=== PATIENT | female | born 1950 | race Caucasian/White ===

== ENCOUNTER 2018-11-25 17:01 | Emergency (ER) | payer MEDICARE ==
[~2018-11-25] VITALS: Ht 152.4 cm; Wt 77.0 kg
[~2018-11-25 17:01] MED LIST: BACL10TA PO; EPIN0.3P3 IM; HYDR-4353 PO; IBUP-1986 PO; NEBI2.5T3 PO
[2018-11-25] MEDS ORDERED: normal saline 1000ML IV soln IV ONE (17:40)
[2018-11-25] MEDS ORDERED: metoprolol tartrate 1mg/ml inj IV ONE (17:40)
[2018-11-25] MEDS ORDERED: acetaminophen 325mg tablet PO STA (18:12)
[2018-11-25 18:13] LABS: BASOPHILS % (AUTO) 0.3 % (0-1); EOSINOPHILS % (AUTO) 0.1 % (0-6); LYMPHOCYTES # (AUTO) 0.8 X10'3 (1.1-4.8); LYMPHOCYTES % (AUTO) 7.2 % (21-51); MEAN CORPUSCULAR HEMOGLOBIN 31.4 PG (27.0-31.0); MEAN CORPUSCULAR HGB CONC 34.8 g/dL (33.0-36.5); MEAN CORPUSCULAR VOLUME 90.3 FL (78-98); MEAN PLATELET VOLUME 8.6 FL (7.4-10.4); MONOCYTES # (AUTO) 0.7 X10'3 (0-0.9); NEUTROPHILS # (AUTO) 9.6 X10'3 (1.8-7.7); NEUTROPHILS % (AUTO) 86.4 % (42-75); PLATELET COUNT 246 X10'3 (140-440); RED BLOOD COUNT 4.76 X10'6 (4.20-5.60); RED CELL DISTRIBUTION WIDTH 12.3 % (11.5-14.5); WHITE BLOOD COUNT 11.2 X10'3 (4.5-11.0)
--- NOTE | 2018-11-25 18:15 | NUR ---
informed Paradise VALLE regarding patients current vital signs and increased pain of 10/10 on 0-10 pain scale. Stated that he would place order for tylenol.
[2018-11-25 18:23] LABS: COLOR,URINE YELLOW (Yellow); GLUCOSE, URINE NEGATIVE (Neg); KETONES,URINE 40 mg/dl (Neg); LEUKOCYTE ESTERASE ,URINE TRACE (Neg); NITRITES, URINE NEGATIVE (Neg); OCCULT BLOOD,URINE TRACE-INTACT (Neg); PROTEIN,URINE NEGATIVE (Neg); UROBILINOGEN,URINE 0.2 E.U/dL (0.2-1.0)
[2018-11-25 18:32] LABS: ANION GAP 11 (8-16); BILIRUBIN,TOTAL 0.8 MG/DL (0.1-1.0); BLOOD UREA NITROGEN 19 MG/DL (7-18); BUN/CREATININE RATIO 16.7 (6.6-38.0); CHLORIDE 102 MMOL/L (99-107); CREATININE 1.14 MG/DL (0.40-0.90); GLUCOSE 110 MG/DL (70-104); POTASSIUM 3.4 MMOL/L (3.5-5.1); SODIUM 136 MMOL/L (135-145); TOTAL CARBON DIOXIDE 23.2 MMOL/L (24-32); eGFR 47 ML/MIN
[2018-11-25 18:33] LABS: ALANINE AMINOTRANSFERASE 46 U/L (12-78); ALKALINE PHOSPHATASE 128 IU/L (46-116); ASPARTATE AMINO TRANSFERASE 32 U/L (10-37); TOTAL PROTEIN 8.2 G/DL (6.4-8.2)
[2018-11-25 18:37] LABS: CLARITY,URINE SLIGHTLY CLOUDY (Clear); UA COLLECTION TYPE NON-SPECIFIED
[2018-11-25 18:39] LABS: BACTERIA,URINE NONE SEEN /HPF (Neg); RBC,URINE NONE SEEN /HPF (0-2); SQUAMOUS EPITHELIAL CELL,UR MODERATE /LPF (FEW)
[2018-11-25] MEDS ORDERED: CefTRIAXone 2gm/D5W 50ml 50 ML IV ONE (18:50)
[2018-11-25] MEDS ORDERED: CEPH250T PO (19:06)
[2018-11-25 19:34] VITALS: BP 149/65
== END 2018-11-25 19:37 | disposition home or self-care (01) ==
LOC: ER 17:03
DX: N39.0 Urinary tract infection, site not specified (principal); R00.0 Tachycardia, unspecified; R42 Dizziness and giddiness; R52 Pain, unspecified; Z98.890 Other specified postprocedural states; Z88.8 Allergy status to other drugs, medicaments and biological substances; Z79.2 Long term (current) use of antibiotics; Z79.899 Other long term (current) drug therapy
CPT/HCPCS: 36415; 71045; 80053; 81001; 82948; 83605; 84145; 85025; 87040; 87088; 96361; 96365; 96375; 99284; J0696; J7030; J7040; 93005; J3490

== ENCOUNTER 2019-10-04 13:18 | Outpatient (CLI) | payer MEDICARE ==
[~2019-10-04 13:18] MED LIST changes: +BARIUM SULFATE 340 ML SUSP.RECON***PROCEDURE AREA ONLY**DONT ENTER PO ONE
== END 2019-10-04 23:59 | disposition home or self-care (01) ==
LOC: RAD 13:18
PROVIDERS: ATTEND Nurse Practitioner Family
DX: K21.9 Gastro-esophageal reflux disease without esophagitis (principal); R49.0 Dysphonia; R13.14 Dysphagia, pharyngoesophageal phase
CPT/HCPCS: 74230

== ENCOUNTER 2019-10-30 10:38 | Observation (INO) | payer MEDICARE ==
[~2019-10-30] VITALS: Ht 152.4 cm; Wt 78.2 kg
[~2019-10-30 10:38] MED LIST changes: -BARIUM SULFATE 340 ML SUSP.RECON***PROCEDURE AREA ONLY**DONT ENTER PO ONE
[2019-10-30 11:06] LABS: BASOPHILS % (AUTO) 0.8 % (0-1); EOSINOPHILS # (AUTO) 0.2 X10'3 (0-0.9); EOSINOPHILS % (AUTO) 3.8 % (0-6); HEMATOCRIT 41.8 % (35.0-45.0); HEMOGLOBIN 14.3 g/dl (12.0-16.0); LYMPHOCYTES # (AUTO) 2.1 X10'3 (1.1-4.8); LYMPHOCYTES % (AUTO) 33.2 % (21-51); MEAN CORPUSCULAR HEMOGLOBIN 30.9 PG (27.0-31.0); MEAN CORPUSCULAR HGB CONC 34.1 g/dL (33.0-36.5); MEAN CORPUSCULAR VOLUME 90.6 FL (78-98); MEAN PLATELET VOLUME 8.9 FL (7.4-10.4); MONOCYTES # (AUTO) 0.5 X10'3 (0-0.9); MONOCYTES % (AUTO) 7.7 % (2-12); NEUTROPHILS # (AUTO) 3.4 X10'3 (1.8-7.7); NEUTROPHILS % (AUTO) 54.5 % (42-75); PLATELET COUNT 216 X10'3 (140-440); RED BLOOD COUNT 4.61 X10'6 (4.20-5.60); RED CELL DISTRIBUTION WIDTH 12.6 % (11.5-14.5); WHITE BLOOD COUNT 6.2 X10'3 (4.5-11.0)
--- NOTE | 2019-10-30 11:15 | NUR ---
Teleneuro exam completed with Dr Colon. Rec CTA head and neck and admission for stroke work up. Pt reports "Tia" in the past. Pt has had recent endoscopy or swallow eval here on outpt for swallowing difficulties.
[2019-10-30 11:20] LABS: PARTIAL THROMBOPLASTIN TIME 27 SECONDS (22-32)
[2019-10-30 11:22] LABS: ALANINE AMINOTRANSFERASE 40 U/L (12-78); ALBUMIN 3.8 G/DL (3.4-5.0); ALBUMIN/GLOBULIN RATIO 1.1 (1.1-1.5); ALKALINE PHOSPHATASE 92 IU/L (46-116); ANION GAP 6 (8-16); ASPARTATE AMINO TRANSFERASE 28 U/L (10-37); BILIRUBIN,TOTAL 0.7 MG/DL (0.1-1.0); BLOOD UREA NITROGEN 17 MG/DL (7-18); BUN/CREATININE RATIO 16.2 (6.6-38.0); CALCIUM 9.5 MG/DL (8.5-10.1); CHLORIDE 106 MMOL/L (99-107); CREATININE 1.05 MG/DL (0.40-0.90); GLUCOSE 97 MG/DL (70-104); POTASSIUM 3.7 MMOL/L (3.5-5.1); SODIUM 141 MMOL/L (135-145); TOTAL CARBON DIOXIDE 28.7 MMOL/L (24-32); TOTAL PROTEIN 7.4 G/DL (6.4-8.2); eGFR 52 ML/MIN
[2019-10-30 11:25] LABS: TROPONIN I < 0.04 NG/ML (0.0-0.05)
[2019-10-30] MEDS ORDERED: iohexol 350MG/ML 100ml bottle IV ONE (11:31)
--- NOTE | 2019-10-30 12:04 | NUR ---
ASSUMED CARE TAKEN OVER FROM ROSENDO RN {STROKE NURSE} AFTER PT IS BACK FROM CTA.
--- NOTE | 2019-10-30 12:06 | NUR ---
PT BACK FROM CT SCAN ,PT VITALS CHECKED ,PT SAID SHE NEED TO USE RESTROOM TO URINATE,BEDSIDE COMMODE GIVEN ,STROKE NURSE ROSENDO AT BEDSIDE WITH THE PT.
[2019-10-30] MEDS ORDERED: IBUP-1985 PO (12:22)
[2019-10-30] MEDS ORDERED: CYCL-1 PO (12:22)
[2019-10-30] MEDS ORDERED: OMEP-50 PO (12:22)
[2019-10-30] MEDS ORDERED: NEBI5TAB10 PO (12:22)
[2019-10-30] MEDS ORDERED: ALBU18HF2 IH (12:31)
[2019-10-30] MEDS ORDERED: BUDE10.2 IH (12:31)
[2019-10-30 12:36] LABS: CLARITY,URINE CLEAR (Clear); COLOR,URINE STRAW (Yellow); GLUCOSE, URINE NEGATIVE (Neg); KETONES,URINE NEGATIVE (Neg); LEUKOCYTE ESTERASE ,URINE NEGATIVE (Neg); NITRITES, URINE NEGATIVE (Neg); OCCULT BLOOD,URINE NEGATIVE (Neg); PROTEIN,URINE NEGATIVE (Neg); UROBILINOGEN,URINE 0.2 E.U/dL (0.2-1.0)
[2019-10-30 12:37] LABS: UA COLLECTION TYPE CLN CATCH MIDSTREAM
[2019-10-30] MEDS ORDERED: acetaminophen 325mg tablet PO PRN (13:15)
[2019-10-30] MEDS ORDERED: potassium Cl 20 mEq SR tablet PO PRN ×2 (13:15)
[2019-10-30] MEDS ORDERED: potassium CL 10mEq/100ml bag 100 ML IV PRN ×2 (13:15)
[2019-10-30] MEDS ORDERED: magnesium Cl slow-release 64mg tablet PO PRN (13:15)
[2019-10-30] MEDS ORDERED: ondansetron/PF 4mg/2ml inj IV PRN (13:15)
[2019-10-30] MEDS ORDERED: magnesium 4gm in 100ml NS 100 ML IV PRN (13:15)
[2019-10-30] MEDS ORDERED: morphine 2 MG/ML inj. syringe IV PRN (13:15)
[2019-10-30] MEDS ORDERED: magnesium 2GM in 50ml NS 50 ML IV PRN (13:15)
[2019-10-30] MEDS ORDERED: HYDROcodone/acetaminophen 5mg/325mg tablet PO PRN (13:15)
--- NOTE | 2019-10-30 14:36 | NUR ---
pt using bedside at this time .will cont to monitor.
--- NOTE | 2019-10-30 15:32 | NUR ---
MRI SCREENING FORM FILLED WITH THE PT.
[2019-10-30] MEDS ORDERED: cyclobenzaprine 10mg tablet PO PRN (16:00)
[2019-10-30] MEDS ORDERED: albuterol 2.5 MG/3 ML nebule NEB PRN (16:00)
--- NOTE | 2019-10-30 17:17 | NUR ---
Patient in room [facility]TH[facility] 4010A. I have received report from ALBA FUENTES IN ED and had the opportunity to ask questions and assume patient care.
[2019-10-30 17:18] VITALS: BP 170/75
[2019-10-30] MEDS ORDERED: ibuprofen 200mg tablet PO PRN (17:30)
[2019-10-30 18:00] VITALS: BP 164/59
--- NOTE | 2019-10-30 18:33 | NUR ---
Problems reprioritized. Patient report given, questions answered & plan of care reviewed with ALBA PETERSON.
[2019-10-30] MEDS ORDERED: budesonide 0.5mg/2ml UD nebule IH SCH (20:00)
[2019-10-30] MEDS: metoprolol tartrate 12.5mg (1/2 tablet) PO SCH (20:00)
[2019-10-30] MEDS: K and/or MAG REPLACEMENT MC SCH (20:00)
[2019-10-30] MEDS: docusate sod 100mg capsule PO SCH (20:23)
[2019-10-30 22:00] VITALS: BP 132/46
[2019-10-31 02:00] VITALS: BP 124/48
[2019-10-31 06:00] VITALS: BP 154/58
--- NOTE | 2019-10-31 06:33 | NUR ---
Problems reprioritized. Patient report given, questions answered & plan of care reviewed with ALBA CARLTON.
--- NOTE | 2019-10-31 06:40 | NUR ---
Patient in room [facility]TH[facility] 4010A. I have received report from ALBA PETERSON and had the opportunity to ask questions and assume patient care.
[2019-10-31 06:58] LABS: BASOPHILS % (AUTO) 0.5 % (0-1); EOSINOPHILS # (AUTO) 0.2 X10'3 (0-0.9); EOSINOPHILS % (AUTO) 3.9 % (0-6); HEMATOCRIT 39.8 % (35.0-45.0); HEMOGLOBIN 13.8 g/dl (12.0-16.0); LYMPHOCYTES # (AUTO) 1.9 X10'3 (1.1-4.8); LYMPHOCYTES % (AUTO) 29.4 % (21-51); MEAN CORPUSCULAR HEMOGLOBIN 31.5 PG (27.0-31.0); MEAN CORPUSCULAR HGB CONC 34.7 g/dL (33.0-36.5); MEAN CORPUSCULAR VOLUME 90.8 FL (78-98); MEAN PLATELET VOLUME 9.2 FL (7.4-10.4); MONOCYTES # (AUTO) 0.6 X10'3 (0-0.9); MONOCYTES % (AUTO) 9.2 % (2-12); NEUTROPHILS # (AUTO) 3.7 X10'3 (1.8-7.7); PLATELET COUNT 198 X10'3 (140-440); RED BLOOD COUNT 4.38 X10'6 (4.20-5.60); RED CELL DISTRIBUTION WIDTH 12.3 % (11.5-14.5); WHITE BLOOD COUNT 6.4 X10'3 (4.5-11.0)
[2019-10-31 07:09] LABS: ALBUMIN 3.6 G/DL (3.4-5.0); ANION GAP 8 (8-16); BLOOD UREA NITROGEN 24 MG/DL (7-18); BUN/CREATININE RATIO 22.4 (6.6-38.0); CALCIUM 9.3 MG/DL (8.5-10.1); CHLORIDE 106 MMOL/L (99-107); CHOL/HDL RATIO 3.8 (0.00-4.99); CHOLESTEROL 162 MG/DL (0-200); CREATININE 1.07 MG/DL (0.40-0.90); GLUCOSE 100 MG/DL (70-104); HDL CHOLESTEROL 43 MG/DL (35-60); LDL CHOLESTEROL 104 MG/DL (50-100); MAGNESIUM 2.1 MG/DL (1.5-2.4); SODIUM 139 MMOL/L (135-145); TOTAL CARBON DIOXIDE 24.7 MMOL/L (24-32); TRIGLYCERIDES 113 MG/DL (20-135); eGFR 51 ML/MIN
[2019-10-31] MEDS: K and/or MAG REPLACEMENT MC SCH (07:22)
[2019-10-31] MEDS ORDERED: pantoprazole 40mg Tablet.DR PO SCH (07:30)
[2019-10-31] MEDS: docusate sod 100mg capsule PO SCH (07:59)
[2019-10-31] MEDS: metoprolol tartrate 12.5mg (1/2 tablet) PO SCH (08:00)
[2019-10-31 10:00] VITALS: BP 115/47
[2019-10-31] MEDS ORDERED: NEBI5TAB10 PO (12:10)
[2019-10-31] MEDS ORDERED: LISI2.5T2 PO (12:13)
--- NOTE | 2019-10-31 13:04 | NUR ---
DC INSTRUCTIONS GIVEN TO PT, QUESTIONS ANSWERED. IV REMOVED, CANULA INTACT, NO COMPLICATIONS. TELE MONITOR REMOVED. PT DRESSED SELF, GATHERED BELONGINGS. WHEELED DOWN TO IN PRIVATE VEHICLE IN STABLE CONDITION.
== END 2019-10-31 12:50 | disposition home or self-care (01) ==
LOC: ER 10:40 → ED HOLD 13:11 → ORTHO 4S 16:45
PROVIDERS: ADMIT Internal Medicine; ATTEND Internal Medicine
DX: R51 Headache (principal); I10 Essential (primary) hypertension; R53.1 Weakness; M79.7 Fibromyalgia; K21.9 Gastro-esophageal reflux disease without esophagitis; Z86.73 Personal history of transient ischemic attack (TIA), and cerebral infarction without residual deficits; Z98.42 Cataract extraction status, left eye; Z79.899 Other long term (current) drug therapy; Z88.6 Allergy status to analgesic agent; Z91.030 Bee allergy status
CPT/HCPCS: 36415; 70450; 70496; 70498; 70544; 70551; 71045; 80048; 80053; 80061; 81003; 83735; 84484; 85025; 85610; 85651; 85730; 87081; 92508; 92616; 93005; 93306; 94640; 94760; 97116; 97161; 97530; 99285; G0378; Q9967; J7626

== ENCOUNTER 2023-11-09 11:05 | Emergency (ER) | payer MEDICARE ==
[~2023-11-09] VITALS: Ht 152.4 cm; Wt 82.0 kg
[~2023-11-09 11:05] MED LIST changes: +ALBU18HF2 IH; +AMLO5TAB4 PO; -BACL10TA PO; +BUDE10.2 IH; +CYCL-1 PO; -EPIN0.3P3 IM; +ESCI-8 PO; -HYDR-4353 PO; -IBUP-1986 PO; -NEBI2.5T3 PO; +OMEP20CA16 PO; +VALS40TA2 PO
[2023-11-09 11:57] LABS: BILIRUBIN,URINE NEGATIVE (Neg); CLARITY,URINE SLIGHTLY CLOUDY (Clear); COLOR,URINE YELLOW (Yellow); GLUCOSE, URINE NEGATIVE (Neg); KETONES,URINE 15 mg/dl (Neg); LEUKOCYTE ESTERASE ,URINE NEGATIVE (Neg); NITRITES, URINE NEGATIVE (Neg); OCCULT BLOOD,URINE NEGATIVE (Neg); PROTEIN,URINE TRACE mg/dl (Neg); UROBILINOGEN,URINE 0.2 E.U/dL (0.2-1.0)
[2023-11-09 12:08] LABS: UA COLLECTION TYPE CLN CATCH MIDSTREAM
[2023-11-09 12:16] LABS: MUCUS STRANDS MODERATE /LPF (Neg); SQUAMOUS EPITHELIAL CELL,UR MANY /LPF (FEW)
[2023-11-09 12:18] LABS: BACTERIA,URINE 1+ /HPF (Neg); COARSE GRANULAR CAST 0-3 /LPF (NEGATIVE); RBC,URINE 0-2 /HPF (0-2)
[2023-11-09 12:26] LABS: BASOPHILS % (AUTO) 0.2 % (0-1); EOSINOPHILS % (AUTO) 0.2 % (0-6); HEMATOCRIT 42.7 % (35.0-45.0); HEMOGLOBIN 14.5 g/dl (12.0-16.0); LYMPHOCYTES # (AUTO) 0.8 X10'3 (1.1-4.8); LYMPHOCYTES % (AUTO) 8.5 % (21-51); MEAN CORPUSCULAR HEMOGLOBIN 30.9 PG (27.0-31.0); MEAN CORPUSCULAR VOLUME 90.9 FL (78-98); MEAN PLATELET VOLUME 8.4 FL (7.4-10.4); MONOCYTES # (AUTO) 0.8 X10'3 (0-0.9); MONOCYTES % (AUTO) 8.1 % (2-12); NEUTROPHILS # (AUTO) 8.2 X10'3 (1.8-7.7); PLATELET COUNT 247 X10'3 (140-440); RED CELL DISTRIBUTION WIDTH 13.2 % (11.5-14.5); WHITE BLOOD COUNT 9.9 X10'3 (4.5-11.0)
[2023-11-09 12:54] LABS: ALANINE AMINOTRANSFERASE 44 U/L (12-78); ALBUMIN 3.7 G/DL (3.4-5.0); ALBUMIN/GLOBULIN RATIO 0.9 (1.1-1.5); ALKALINE PHOSPHATASE 134 IU/L (46-116); ANION GAP 12 (8-16); ASPARTATE AMINO TRANSFERASE 38 U/L (10-37); BLOOD UREA NITROGEN 13 MG/DL (7-18); BUN/CREATININE RATIO 12.5 (10.0-20.0); CALCIUM 9.6 MG/DL (8.5-10.1); CHLORIDE 101 MMOL/L (99-107); CREATININE 1.04 MG/DL (0.40-0.90); GLUCOSE 129 MG/DL (70-104); LIPASE 37 U/L (16-77); POTASSIUM 4.1 MMOL/L (3.5-5.1); SODIUM 135 MMOL/L (135-145); TOTAL CARBON DIOXIDE 21.6 MMOL/L (24-32); TOTAL PROTEIN 7.7 G/DL (6.4-8.2); eCRCL 35 ML/MIN; eGFR 52 ML/MIN
[2023-11-09 13:03] LABS: BILIRUBIN,TOTAL 0.7 MG/DL (0.1-1.0)
[2023-11-09 13:19] VITALS: TEMP 99.7
[2023-11-09] MEDS: acetaminophen 1,000mg/100ml IV 100 ML IV ONE (13:42)
[2023-11-09] MEDS: normal saline 1000ml 1,000 ML IV ONE (13:43)
[2023-11-09] MEDS ORDERED: NIRM1TAB9 PO (14:15)
[2023-11-09 14:25] VITALS: BP 144/99; PULSE 78; RESP 16; O2SAT 99
== END 2023-11-09 14:33 | disposition home or self-care (01) ==
LOC: ER 11:05
DX: U07.1 COVID-19 (principal); M79.7 Fibromyalgia; Z88.8 Allergy status to other drugs, medicaments and biological substances; Z79.899 Other long term (current) drug therapy; Z79.51 Long term (current) use of inhaled steroids; Z86.73 Personal history of transient ischemic attack (TIA), and cerebral infarction without residual deficits; Z98.890 Other specified postprocedural states
CPT/HCPCS: 36415; 80053; 81001; 83690; 85025; 87811; 96365; 99284; J0131; J7030

== ENCOUNTER 2024-07-01 22:18 | Emergency (ER) | payer MEDICARE ==
[~2024-07-01 22:18] MED LIST changes: +NIRM1TAB9 PO
--- NOTE | 2024-07-01 23:56 | RADIOLOGY REPORT ---
EXAM: CT CT CERVICAL SPINE HISTORY: fall, w/. head strike COMPARISON: None CTDIvol mGy, DLP mGy*cm. TECHNIQUE: Multiple axial CT images of the spine were obtained using bone algorithm. Axial and coron al reformatting was done. Bone and soft tissue windows were reviewed. FINDINGS: No prevertebral soft tissue abnormality noted. There is normal alignment of the cervical spine. The c ervical vertebral bodies appear unremarkable with no evidence of fracture or dislocation. Paraspinal soft tissues appear unremarkable. Mild cervical spondylosis without spinal canal stenosis. Incidental ly noted are elongated styloid processes bilaterally. IMPRESSION: No evidence of cervical spine fracture or dislocation.
--- NOTE | 2024-07-01 23:57 | RADIOLOGY REPORT ---
CLINICAL HISTORY: fall, w/. head strike TECHNIQUE: Helical imaging carried out from skull base to vertex without intravenous contrast. This e xam was performed according to our departmental dose optimization program. Up-to-date CT equipment an d radiation dose reduction techniques are utilized as appropriate. CTDIVol: 0.14+ 60.85 mGy DLP: 1147.84 mGy-cm WID: COMPARISON: CT HEAD on DOS: 08/02/21 FINDINGS: Generalized cerebral volume loss with concordant prominence of the subarachnoid spaces and ventricles . There is no midline shift or mass effect. The alejandra white matter interfaces are maintained. The basal cisterns are patent. There is no evidence of acute intracranial hemorrhage or extra-axial fluid chris ection. The mastoid air cells and visualized paranasal sinuses are well-aerated aside from mild paran danny sinus mucosal thickening. IMPRESSION: No acute intracranial abnormality.
[2024-07-02] MEDS ORDERED: ibuprofen tablet 400 MG TABLET PO ONE (00:15)
--- NOTE | 2024-07-02 00:28 | Physician Documentation ---
History of Present Illness ~ Chief Complaint: Mechanical Fall Stated Complaint: FALL Time Seen by MD: 23:10 Primary Medical Doctor: EDNA Source: patient, family Mode of Arrival: POV HPI The patient tells me that she had been at her 's birthday constitution party. She was walking outside to go clean up, when she tripped and fell, landing on the ground next to some rocks. She did put out her arms in front of her face and chest catch herself, but she still hit the front of her head. No loss of consciousness. She reports pain in her face and a generalized headache. She reports pain in her neck diffusely. She reports mild pain in her arms and knees. She also reports chronic pain in multiple locations. She is not on anticoagulation. Tetanus within 5 Years?: No Medication Reconciliation Allergies: Coded Allergies: celecoxib (Verified Allergy, Intermediate, N/V, heaadache, 02/25/16) Uncoded Allergies: BEE STING (Allergy, Unknown, 02/25/16) Scheduled Amlodipine Besylate (Norvasc), 1 TAB PO DAILY Budesonide/Formoterol Fumarate (Symbicort 160-4.5 Mcg Inhaler), 2 PUFFS IH BID, (Reported) Escitalopram Oxalate (Escitalopram Oxalate), 1 TAB PO DAILY, (Reported) Nirmatrelvir/Ritonavir (Paxlovid 300-100 mg Dose Pack), 3 TAB PO BID Omeprazole (Omeprazole), 1 CAP PO BID, (Reported) Valsartan (Diovan), 1 TAB PO QAM, (Reported) Valsartan (Diovan), 80 MG PO HS, (Reported) Scheduled PRN Albuterol Sulfate (Ventolin Hfa), 2 PUFFS IH Q4H PRN for SOB or wheezing, (Reported) Cyclobenzaprine* (Cyclobenzaprine*), 1 TAB PO DAILY PRN for muscle spasms, (Reported) Past Medical History Past Medical History: CVA/TIA/Stroke, Vertigo, *ENT*, Glaucoma, *PULMONARY*, Fibromyalgia Past Surgical History: noncontributory, orthopedic surgeries Other Past Surgical History: Glaucoma surgery left eye 10/28 Other Past Family History: NONCONTRIBUTORY Alcohol Use: None Drug Use: none Lives with: Spouse Occupation: retired Review of Systems Respiratory: Denies: shortness of breath Cardiovascular: Denies: chest pain Gastrointestinal: Denies: abdominal pain Neurological: Reports: headache; Denies: dizziness, left sided numbness, right sided numbness, left sided weakness, right sided weakness Physical Exam Vital Signs: Temperature: 97.6, Source: Oral, Heart Rate: 85, Respiratory Rate: 19, BP: 188/78, Pulse Oximetry: 97 Oxygen Flow Rate: 0 Physical Exam General: This is a older woman, lying in bed wearing a C-collar, at bedside HEENT: She does have a mild bruise over the right cheek, otherwise No obvious facial trauma, no focal tenderness on palpation of the bones of the face or nose. No intraoral injuries. Neck: C-collar in place. After the collar was later removed, she has no midline tenderness on palpation of the C-spine but does have significant tende rness on palpation of the bilateral paracervical muscles Heart: Regular rate and rhythm, normal-appearing peripheral perfusion Lungs: Clear breath sounds bilateral, normal work of breathing, normal oxygen saturation on room air Abdomen: Soft, nondistended, nontender all quadrants Extremities: Warm and well-perfused. Full range of motion in all 4 extremities without pain or limitation. Neuro: Alert and oriented, normal strength and sensation all 4 extremities. Psychiatric: Appears tired in his slow to answer, but otherwise is cooperative with exam Progress Results/Orders Results/Orders Orders - SHALONDA BERGER MD Ct Head (07/01/24 23:00) Ct Cervical Spine (07/01/24 23:00) Completed Orders - SHALONDA BERGER MD Ct Head (07/01/24 23:00) Ct Cervical Spine (07/01/24 23:00) Lidocaine 5% Patch (Lidoderm 5% Patch) (07/02/24 00:20) Ibuprofen Tablet (Motrin Tablet) (07/02/24 00:25) Medications Received in ER Medications (Trade) Dose Ordered Sig/Christel Route PRN Reason Start Time Stop Time Status Last Admin Dose Admin (Lidoderm 5% Patch) 1 patch DAILY ONCE TP 07/02/24 00:20 07/02/24 00:21 DC 07/02/24 00:31 1 PATCH (Motrin tablet) 600 mg ONCE ONCE PO 07/02/24 00:25 07/02/24 00:26 DC 07/02/24 00:29 600 MG Vital Signs 07/01/24 07/01/24 07/01/24 07/02/24 22:29 23:05 23:07 00:57 Temp 97.6 97.6 Pulse 82 85 87 Resp 16 16 19 16 B/P (MAP) 108/81 188/78 (114) 150/90 Pulse Ox 98 97 100 O2 Flow Rate 0 EKG/XRAY/CT/US/VASC/MRI CT : Impression I personally reviewed the CT scan, and this shows no acute fracture to the skull, no cervical spine fracture, no intracranial hemorrhage Medical Decision Making Differential Dx:Considerations: Include: Closed head injury, Fracture(s), Cerebral contusion, Spine injury, Contusion(s) Additional Comment The patient presents with a fall and head injury. On exam she does have a headache, and generalized neck pain. CT scan of the head and neck does not show a fracture, intracranial hemorrhage, or cervical injury. She also has no other findings of significant injury to her body or extremities. Overall her injuries seem consistent with contusions and a cervical sprain. She was reassured, and will be discharged home with symptomatic treatment and return precautions. Departure Time of Disposition: 00:27 Disposition: 01 HOME / SELF CARE / HOMELESS Impression: Primary Impression: Fall Additional Impressions: Closed head injury Cervical sprain Condition: Improved Discharge Instructions: Cervical Sprain Referrals: NO PRIMARY CARE PROVIDER (PCP) Education Educated: Patient, Family Educated regarding: diagnosis, treatment, need for follow up Signature Scribe Signature: na Attestation: SHALONDA Cast MD July 02, 2024 00:28
[2024-07-02] MEDS: ibuprofen 200mg tablet PO ONE (00:29)
[2024-07-02] MEDS: LIDOcaine 5% patch TP ONE (00:31)
[2024-07-02 00:57] VITALS: BP 150/90; PULSE 87; RESP 16; TEMP 97.6; O2SAT 100
== END 2024-07-02 01:03 | disposition home or self-care (01) ==
LOC: ER 22:18
DX: S13.4XXA Sprain of ligaments of cervical spine, initial encounter (principal); S09.90XA Unspecified injury of head, initial encounter; M79.7 Fibromyalgia; Z86.73 Personal history of transient ischemic attack (TIA), and cerebral infarction without residual deficits; W01.0XXA Fall on same level from slipping, tripping and stumbling without subsequent striking against object, initial encounter; Y93.01 Activity, walking, marching and hiking; Y92.89 Other specified places as the place of occurrence of the external cause; Y99.8 Other external cause status
CPT/HCPCS: 70450; 72125; 99284; L0172